=== PATIENT | female | born 1960 | race Caucasian/White ===

== ENCOUNTER 2018-03-24 10:46 | Observation (INO) ==
[~2018-03-24 10:46] MED LIST: Bupivacaine/Epinephrine 0.5% Inj 50 ML Vial ONE; Thrombin Topical Soln 5,000 UNIT Vial TOPICAL ONE; ceFAZolin 2 GM Premix Inj 0 GM/0 ML PIGGYBACK IV.SIG ONE
[2018-03-24] MEDS ORDERED: ceFAZolin 2 GM IV; once IV.SIG SCH (11:30)
[2018-03-24] MEDS ORDERED: Metoprolol Tartrate 25 MG Tablet PO SCH (11:30)
[2018-03-24] MEDS ORDERED: Chlorhexidine Gluconate 2% 1 Pack (2 Cloths) TOPICAL SCH (11:30)
[2018-03-24] MEDS ORDERED: Sodium Chlor 0.9% Inj 500 ML IV.SIG SCH (12:00)
[2018-03-24] MEDS: ceFAZolin 2 GM Premix Inj 2 GM/50 ML PIGGYBACK IV.SIG SCH ×2 (13:30→17:47)
[2018-03-24] MEDS ORDERED: Bisacodyl 10 MG Supp RECTAL PRN ×2 (13:43→13:44)
[2018-03-24] MEDS ORDERED: Menthol 5.8 MG Lozenge BUCCAL PRN (13:44)
--- NOTE | 2018-03-24 14:05 | ECG ---
Date Performed: 03/24/2018 Time Performed: 11:39:53 PTAGE: 58 years EKG: Sinus rhythm NORMAL ECG NO PREVIOUS TRACING DOCTOR: Kwame Fierro Interpretating Date/Time 03/24/2018 14:03:20
[2018-03-24] MEDS: Gelatin 12 MM/7 MM Topical Foam ONE ×2 (14:33→21:57)
--- NOTE | 2018-03-24 15:13 | P.OP ---
Date of procedure: 03/24/18 Procedure: L4-5, L5-S1 decompressive hemilaminectomy, mesial facetectomy, foraminotomy, microsurgical resection of the disc Anesthesia: CANELO Surgeon: Sam Heart MD Check Out Cashier: Nathalie Chan Estimated blood loss (mL): 80 Pathology: none sent Operation and Findings: INDICATIONS FOR THE SURGICAL PROCEDURE Ms Stephen is a 58 year-old female who presented with intractable mechanical back pain and clinical evidence of L5 and S1 lower extremity radiculopathy. She was found to have significant lumbar spinal stenosis with significant mass effect on the neural structures which correlated with the clinical symptoms. She failed maximum nonsurgical management including multiple modalities of conservative treatment as well as pain management interventions by an interventional pain specialist. A surgical decompression was indicated as a last resort. The [id number] details of the procedure, indications, alternatives, risks and potential complications were fully discussed with the patient. The patient fully understood. All the questions were answered. No guarantees were given. The patient voiced requesting the procedure and provided informed consents. The patient was offered the alternative of delaying the procedure and continuing with nonsurgical management. DETAILS OF THE SURGICAL PROCEDURE After the induction of general anesthesia, endotracheal intubation was performed. A Ramírez catheter, bilateral DIXIE hose and sequential compression devices were placed and kept throughout the procedure. The patient was positioned prone on a Boni table over a Jose frame. All pressure points were carefully padded with eggcrate mattress. The eyes were tapped shut after ointment was applied by the anesthesiologist to prevent corneal abrasion. A Pat hugger was placed over the exposed lower body to maintain control of the core body temperature. The lower lumbar region was prepped and draped in the usual sterile fashion. A spinal needle was placed for localization and an x- ray performed with a C-arm. A skin incision was made in the midline over the spinous processes L4-5, L5-S1 with a #10 blade. Small subcutaneous bleeders were controlled with a bipolar and the dissection was carried out through the lumbar fascia exposing the spinous processes. A subperiostial dissection was performed with a De Los Santos elevator and a Bovie over the L4-5, L5-S1 spinous process lamina and facets. A microdiscectomy self-retaining retractor was placed on the incision and an x- ray was obtained with an instrument placed underneath the lamina. At this point in the procedure the operating microscope was draped in the usual sterile fashion and brought to the field. The rest of the surgical procedure was performed using microsurgical dissection technique with exception of the closure. Once the level was confirmed, a decompressive laminectomy was performed at L4-5 , L5-S1 using the TPS drill with an 4mm drill bit. A medial facetectomy was performed and the superior free border of the ligamentum flavum was dissected with a ligament dissector and removed with a thin footplate 2 mm Kerrison. The medial facetectomy was done and the L5 nerve root was identified and followed towards its exit in the foramen. Epidural veins located laterally to the dural sac were coagulated with a bipolar and incised with microscissors. Gentle medial retraction of the dural sac allowed inspection of the disc space. The patient had severe facet arthropathy with hypertrhopy of the joint facets and ligamentum flavum resulting in mass effect over the dural sac and nerve roots. In addition, there was a broad-based disc protusion, contributing to the stenosis. The annulus fibrosus of the disc L4-5, L5-S1 was coagulated with the bipolar and incised with an 11 blade. The protuding disc was carefully dissected from the surrounding tissue and removed with pituitary forceps. Then, a microdiscectomy was carried out in the standard fashion using straight and up- biting pituitary forceps. A good decompression of the dural sac and nerve root was achieved. The exit of the nerve root was inspected for residual disc fragments and hemostasis was secured with the bipolar. The incision was irrigated with a large amount of saline solution. A Valsalva maneuver failed to show any cerebrospinal fluid leak or bleeding. The decompression was assessed again and found to be satisfactory. The incision was then closed in layers. The fascia was closed with 0 Vicryl sutures in an interrupted fashion. The superficial fascia was closed with 0 Vicryl sutures. The fascia was infiltrated with 0.5% Marcaine with epinephrine 1:100,000 dilution. The subcutaneous tissue was irrigated then closed with 0 Vicryl and 3 -0 Vicryl. The skin was closed with 4-0 running subcuticular Vicryl. A sterile dressing was applied. At the end of the procedure, the sponge, needle and instrument counts were all correct. Estimated blood loss was less than 80 cc. No blood transfusion was given. No intraoperative complications occurred. The patient received prophylactic antibiotics. The patient was then extubated and transferred to the recovery room in stable condition.
--- NOTE | 2018-03-24 15:15 | XR ---
EXAM DATE: 03/24/2018 3:08 PM EDT AGE/SEX: 58 years / Female INDICATIONS: Lumbar laminectomy, Level localization. L4-5, L5-S1. CLINICAL DATA: This is the patient's initial encounter. Patient reports that signs and symptoms have been present for 1 day and indicates a pain score of Nonresponsive. MEDICAL/SURGICAL HISTORY: Non-responsive. Non-responsive. COMPARISON: No prior exams available for comparison. FINDINGS: A probe is in place at the L5 level. The vertebral bodies are normal in alignment on the lateral view . CONCLUSION: Postsurgical changes as above. Electronically signed by: Ted Ayala MD 03/24/2018 3:14 PM EDT
[2018-03-24] MEDS ORDERED: fentaNYL Citrate Inj 100 MCG/2 ML Ampul ONE ×2 (15:19→15:24)
[2018-03-24] MEDS ORDERED: Lidocaine PF 1% Inj 5 ML Syringe INFILTRATN ONE (15:30)
[2018-03-24] MEDS ORDERED: Glycopyrrolate Inj 1 MG/5 ML Syringe IV.PUSH ONE (15:30)
[2018-03-24] MEDS ORDERED: Esmolol Bolus Inj 100 MG/10 ML Vial IV.PUSH ONE (15:30)
[2018-03-24] MEDS ORDERED: Labetalol HCl Inj 100 MG/20 ML Vial IV.CONT ONE (15:30)
[2018-03-24] MEDS ORDERED: Neostigmine Inj 5 MG/5 ML Syringe IV.PUSH ONE (15:30)
[2018-03-24] MEDS ORDERED: *morphine SULFATE 10 MG/ML PERIprocedure ONLY ONE ×2 (15:54→16:10)
[2018-03-24] MEDS ORDERED: *Meperidine Inj 25 MG/ML Vial PERIprocedural Use ONLY ONE (15:56)
[2018-03-24] MEDS: Sod Chloride 0.9% Inj 1,000 ML IV.CONT SCH (16:00)
[2018-03-24] MEDS ORDERED: HYDROmorphone PF Inj 2 MG/ML Vial ONE (16:40)
[2018-03-24] MEDS ORDERED: Senna/Docusate Sodium 8.6/50 MG Tablet PO SCH (21:00)
[2018-03-24] MEDS: Senna/Docusate Sodium 8.6/50 MG Tablet PO SCH (21:58)
[2018-03-25] MEDS: ceFAZolin 2 GM Premix Inj 2 GM/50 ML PIGGYBACK IV.SIG SCH (03:13)
[2018-03-25] MEDS: Sod Chloride 0.9% Inj 1,000 ML IV.CONT SCH ×2 (03:14→12:40)
[2018-03-25] MEDS: Senna/Docusate Sodium 8.6/50 MG Tablet PO SCH (08:32)
[2018-03-25] MEDS ORDERED: LACTOBAC RHAMNOSUS GG INULIN PO SCH (09:00)
--- NOTE | 2018-03-25 12:13 | P.DS ---
Date of admission: 03/24/18 18:33 Primary care physician: Ted Bustos MD Brief History from admission: Ms Stephen is a 58 year-old female who presented with intractable mechanical back pain and clinical evidence of L5 and S1 lower extremity radiculopathy. She was found to have significant lumbar spinal stenosis with significant mass effect on the neural structures which correlated with the clinical symptoms. She failed maximum nonsurgical management including multiple modalities of conservative treatment as well as pain management interventions by an interventional pain specialist. A surgical decompression was indicated as a last resort. DS: Diagnosis - Discharge Diagnosis (1) S/P lumbar laminectomy Status: Acute DS: Summary Hospital Course: Ms. Stephen underwent a L4-5, L5-S1 decompressive hemilaminectomy, mesial facetectomy, foraminotomy, microsurgical resection of the disc on 03/24/18. She is discharged home in stable conditions. - Time Spent with Patient Total time spent providing and/or coordinating discharge services: - Quality: VTE Deep Vein Thrombosis/Pulmonary Embolism Present on Admission: No Exam Vital signs: Vital Signs 03/24/18 12:16 03/24/18 15:09 03/24/18 15:15 Temperature 98.7 F 97.4 F L Pulse Rate 83 77 78 Respiratory Rate 20 17 17 Blood Pressure 182/103 H 172/92 H 174/89 H Pulse Oximetry 97 99 99 03/24/18 15:30 03/24/18 15:45 03/24/18 16:00 Temperature Pulse Rate 71 71 72 Respiratory Rate 17 17 17 Blood Pressure 177/94 H 178/91 H 163/90 H Pulse Oximetry 99 98 98 03/24/18 16:15 03/24/18 16:30 03/24/18 16:45 Temperature Pulse Rate 74 81 78 Respiratory Rate 17 17 17 Blood Pressure 164/89 H 159/86 H 160/87 H Pulse Oximetry 98 98 98 03/24/18 17:00 03/24/18 17:30 03/24/18 18:00 Temperature 98.3 F Pulse Rate 92 H 86 Respiratory Rate 19 19 19 Blood Pressure 158/85 H 158/82 H 135/81 Pulse Oximetry 98 98 03/24/18 20:00 03/25/18 00:00 03/25/18 01:46 Temperature 97.2 F L 98.3 F Pulse Rate 86 89 Respiratory Rate 18 18 18 Blood Pressure 133/71 120/55 L Pulse Oximetry 92 L 92 L 03/25/18 04:00 03/25/18 11:15 Temperature 97.9 F Pulse Rate 85 Respiratory Rate 18 19 Blood Pressure 120/61 Pulse Oximetry 93 L Intake & Output 03/24/18 03/25/18 03/25/18 18:59 06:59 18:59 Intake Total 1400 / 1400 1050 / 1050 Output Total 100 / 100 900 / 900 Balance 1300 / 1300 150 / 150 Weight 93.4 kg 93.5 kg Intake: IV 100 / 100 1050 / 1050 NS Inj 1,000 ML @ 100 mls/hr IV 1000 / 1000 .CONT .Q10H ANGLE Rx#:[id number] Ancef 2 GM Premix Inj 2 gm In 100 / 100 50 / 50 50 ml @ 100 mls/hr IV.SIG Q8H ANGLE Rx#:[id number] Anesthesia Amount 1300 / 1300 Output: Urine 900 / 900 Urine Amount (Catheter) 100 / 100 Indwelling Urethral Catheter 100 / 100 Other: Weight On Admission 93.4 kg Results Procedures completed during hospitalization: s/p lumbar laminectomy Labs on day of discharge: Labs from last 24 hours 03/24/18 11:54 APTT 26.9 - Impressions ITS Impressions Lumbar Spine X-Ray 03/24/18 00:00 CONCLUSION: Postsurgical changes as above. Discharge Plan - Discharge Disposition Patient Disposition: 01 Discharge Home - Discharge Condition Condition: Good - Discharge Order Discharge Orders: Discharge Order (Routine); Ordered 03/25/18 Ordered By: Ariana Casey - Physicians Team Primary Care Provider: Ted Bustos Attending Provider: Sam Heart - Rxs /Orders / Referrals /Forms Prescriptions: No Action aspirin [Aspir-81] 81 mg Tablet,Delayed Release (Dr/Ec) 81 mg PO DAILY cholecalciferol (vitamin D3) 2,000 unit Capsule 2,000 unit PO DAILY Lactobac. rhamnosus GG-inulin [Culturelle Probiotics] 10 billion cell -200 mg Capsule 1 cap PO DAILY ondansetron HCl [Zofran] 8 mg Tablet 8 mg PO BID PRN (Reason: Nausea) oxycodone 15 mg Tablet 15 mg PO Q4-6H PRN (Reason: Pain) Referrals: Ted Bustos MD [Primary Care Provider] - See Instructions - Discharge Instructions Additional Instructions: Please call Dr. Heart office or go [place] or nearest emergency room if you develop high fevers, acute extremity weakness, loss of bowel or bladder control , wound drainage or signs of infection, or severe pain out of proportion to your normal healing process. Any life threatening please call 911.
== END 2018-03-25 15:31 | disposition home or self-care (01) ==
LOC: N05 10:46 → HSDC 10:46
PROVIDERS: ADMIT Neurological Surgery; ATTEND Neurological Surgery